=== PATIENT | male | born 1980 | race Hispanic/Latino ===

== ENCOUNTER → 2021-03-12 | Outpatient (CLI) | payer SELFPAY | LOC: M LABSMTC 14:15 | PROVIDERS: ATTEND Pediatrics | DX: Z20.822 Contact with and (suspected) exposure to COVID-19 (principal) ==

== ENCOUNTER 2021-03-18 17:32 | Inpatient (IN) | payer OTHER ==
[~2021-03-18] VITALS: Ht 182.9 cm; Wt 116.0 kg
[2021-03-18] MEDS ORDERED: NS 1,000 ML IV ONE (18:05)
[2021-03-18] MEDS ORDERED: ACETAMINOPHEN TAB 650MG DOSE (2X325MG) PO ONE ×2 (18:05→18:15)
[2021-03-18 18:31] LABS: HEMATOCRIT 41.2 % (42.0-52.0); HEMOGLOBIN 13.9 g/dl (13.5-17.5); MEAN CORPUSCULAR HEMOGLOBIN 29.3 pg (27.0-33.0); MEAN CORPUSCULAR HGB CONC 33.7 g/dl (32.0-36.5); MEAN CORPUSCULAR VOLUME 86.7 fl (80.0-96.0); PLATELET COUNT, AUTOMATED 160 10^3/uL (150-450); RED BLOOD COUNT 4.75 10^6/uL (4.30-6.10)
--- NOTE | 2021-03-18 18:41 | REP ---
INDICATION: CHEST PAIN. COMPARISON: None. TECHNIQUE: Single portable AP view of the chest was performed. FINDINGS: There is infiltrate in the left lung base. The right lung appears clear. The cardiac silhouette is mildly prominent. The mediastinal silhouette is unremarkable. IMPRESSION: Infiltrate left lung base. <Electronically signed by Morro Ansari > 03/18/21 [id number]
[2021-03-18 18:44] LABS: INR 0.99; PARTIAL THROMBOPLASTIN TIME 35.5 SECONDS (24.2-38.5); PROTHROMBIN TIME 13.2 SECONDS (12.5-14.3)
[2021-03-18 18:47] VITALS: O2SAT 94
[2021-03-18 18:53] LABS: D-DIMER QUANT 1730.3 ng/ml (<500)
[2021-03-18] MEDS ORDERED: GABA-282 (18:54)
[2021-03-18] MEDS ORDERED: CRES10TA (18:54)
[2021-03-18] MEDS ORDERED: DULO1CAP5 (18:54)
[2021-03-18] MEDS ORDERED: AMOX875T2 (18:54)
[2021-03-18] MEDS ORDERED: AZITHROMYCIN INJ 500 MG, VIAL MATE ADAPTER 1 EACH in NS 250 ML IV ONE (18:55)
[2021-03-18] MEDS ORDERED: cefTRIAXone SOD 1 GM in D5W MINI-BAG PLUS 50 ML IV ONE (18:55)
[2021-03-18 19:00] LABS: LYMPHOCYTES 13 % (16-44); METAMYELOCYTES 1 % (0-0); MONOCYTES 3 % (0-5); NEUTROPHILS 70 % (28-66); PLATELET ESTIMATE NORMAL (NORMAL)
[2021-03-18 19:29] LABS: ALBUMIN 3.6 GM/DL (3.2-5.2); ALT/SGPT 58 U/L (12-78); BILIRUBIN,DIRECT < 0.1 MG/DL (0.0-0.2); BILIRUBIN,TOTAL 0.5 MG/DL (0.2-1.0); BLOOD UREA NITROGEN 11 MG/DL (7-18); CALCIUM LEVEL 8.7 MG/DL (8.5-10.1); CARBON DIOXIDE LEVEL 25 MEQ/L (21-32); CHLORIDE LEVEL 99 MEQ/L (98-107); CK-MB VALUE MASS 1.1 NG/ML (<3.6); CPK CREATINE PHOSPHOKINASE 464 U/L (39-308); FERRITIN 1719 NG/ML (26-388); FREE T4 1.35 NG/DL (0.76-1.46); GLOMERULAR FILTRATION RATE > 60.0 (>60); GLUCOSE, FASTING 114 MG/DL (70-100); LDH LACTATE DEHYDROGENASE 403 U/L (87-241); MAGNESIUM LEVEL 2.2 MG/DL (1.8-2.4); MB/CK RELATIVE INDEX 0.24 (< OR =4); POTASSIUM SERUM 3.8 MEQ/L (3.5-5.1); SODIUM LEVEL 133 MEQ/L (136-145); TOTAL PROTEIN 7.9 GM/DL (6.4-8.2); TROPONIN I < 0.02 NG/ML (< 0.10)
[2021-03-18] MEDS ORDERED: ISOVUE-370 76% 100ML VIAL As Ordered ONE (20:05)
[2021-03-18] MEDS ORDERED: IBUPROFEN 600MG TAB PO ONE (20:55)
--- NOTE | 2021-03-18 21:23 | REPVR ---
PROCEDURE INFORMATION: Exam: CTA Chest With Contrast Exam date and time: 03/18/2021 8:54 PM Age: 41 years old Clinical indication: Shortness of breath; Additional info: SOB covid positive TECHNIQUE: Imaging protocol: Computed tomographic angiography of the chest with contrast. 3D rendering (Not supervised by radiologist): MIP and/or 3D reconstructed images were created by the technologist. Radiation optimization: All CT scans at this facility use at least one of these dose optimization techniques: automated exposure control; mA and/or kV adjustment per patient size (includes targeted exams where dose is matched to clinical indication); or iterative reconstruction. Contrast material: ISOVUE 370; Contrast volume: 75 ml; Contrast route: INTRAVENOUS (IV); COMPARISON: DC PORTABLE CHEST X-RAY 03/18/2021 6:21 PM FINDINGS: Pulmonary arteries: There are no pulmonary emboli. Aorta: There is no aortic dissection or aneurysm. Lungs: Bilateral pulmonary parenchymal infiltrates demonstrated in both lower lobes with a large focus of consolidation including air bronchograms in the left lower lobe. Findings consistent with known Covid positive diagnosis. Pleural spaces: Unremarkable. No pneumothorax. No pleural effusion. Heart: Unremarkable. No cardiomegaly. No pericardial effusion. Lymph nodes: Mediastinal lymphadenopathy likely postinflammatory. Bones/joints: Unremarkable. No acute fracture. Soft tissues: Unremarkable. IMPRESSION: 1. There are no pulmonary emboli. 2. Bilateral pulmonary parenchymal infiltrates demonstrated in both lower lobes with a large focus of consolidation including air bronchograms in the left lower lobe. Findings consistent with known Covid positive diagnosis. 3. There is no aortic dissection or aneurysm. Electronically signed by: Naseem Berry On 03/18/2021 21:23:11 PM
[2021-03-18] MEDS ORDERED: dexameTHASONE 20MG/5ML VIAL (J1100 PER 1MG) IV ONE (21:30)
[2021-03-18] MEDS ORDERED: GABA-282 PO (22:12)
[2021-03-18] MEDS ORDERED: DULO30CA9 PO (22:12)
[2021-03-18] MEDS ORDERED: AUGM875T28 PO (22:12)
[2021-03-18] MEDS ORDERED: ROSU10TA6 PO (22:12)
[2021-03-18] MEDS ORDERED: LIDO1PAD TOP (22:22)
[2021-03-18] MEDS ORDERED: IBUP-1764 PO (22:22)
[2021-03-18] MEDS ORDERED: D31000TA2 PO (22:22)
[2021-03-18] MEDS ORDERED: ZANA4TAB PO (22:22)
[2021-03-18] MEDS ORDERED: TRIA1CR80 TOP (22:22)
[2021-03-18] MEDS ORDERED: CLOB0.057 TOP (22:22)
[2021-03-18] MEDS ORDERED: ACET-897 PO (22:22)
[2021-03-18] MEDS ORDERED: VITA500C24 PO (22:22)
--- NOTE | 2021-03-18 23:04 | HPEPDOC ---
[facility] Medical History & Physical Date of Admission Mar 18, 2021 Date of Service: Mar 18, 2021 History and Physical CHIEF COMPLAINT: fever, shortness of breath HISTORY OF PRESENT ILLNESS: 41-year-old male with history of hyperlipidemia, WILLIAM and depression. Presented to the ER with symptoms of shortness of breath and subjective fevers lasting approximately one week. He was diagnosed with Covid on March 16 at an urgent care. Vital to the ER patient was found to be febrile to temperature 103.4 with heart rate to 120s with sinus tachycardia on EKG. Patient does not open her chest pain, palpitations, nausea, vomiting, diarrhea, headache, or diarrhea. Does exercise a left lower lobe infiltrate that is consistent with CT imaging. CT chest with angiogram did not show a pulmonary embolism. Patient will be admitted to hospitalist service for management of sepsis secondary to Covid and superimposed bacterial pneumonia. PAST MEDICAL HISTORY: depression HLD WILLIAM on home CPAP PAST SURGICAL HISTORY: R shoulder surgery SOCIAL HISTORY: denies etoh use denies smoking denies illicits active FAMILY HISTORY: Denies relevant family history ALLERGIES: Please see below. REVIEW OF SYSTEMS: 10 point review of systems was completed, relevant findings are noted in HPI. HOME MEDICATIONS: Please see below. PHYSICAL EXAMINATION: VITAL SIGNS: please see below General: He is diaphoretic, HEENT: PERRLA, EOMI, sclerae clear Neck: supple, normal ROM, no JVD Respiratory: Rales in the left lung base. Fair air entry in the lung bases. Wheezing, no crackles CVS: RRR, normal S1, S2, no murmurs Abdo: soft, no masses, no hepatosplenomegaly, BS+, no rebound tenderness Extremities: no edema, pulses 2+ MSK: no joint deformities, normal ROM Neuro: no focal neuro deficits, moving all 4 extremities, CN2-12 intact. Strength 5/5 in all 4 extremities. No nystagmus. Psych: calm, cooperative, AAO x 3 LABORATORY DATA: See below. IMAGING: CXR (03/18/21): Infiltrate left lung base. CTA chest (03/18/21): 1. There are no pulmonary emboli. 2. Bilateral pulmonary parenchymal infiltrates demonstrated in both lower lobes with a large focus of consolidation including air bronchograms in the left lower lobe. Findings consistent with known Covid positive diagnosis. 3. There is no aortic dissection or aneurysm. MICROBIOLOGY: Please see below. ASSESSMENT: 41-year-old male with history of depression and hyperlipidemia presented with shortness of breath and fever secondary to Covid 19. Patient was diagnosed on 03/16/21. In the ER, chest, imaging shows a left lower lobe infiltrate consistent with Covid with superimposed bacterial pneumonia. Patient has elevated up with calcitonin sinus tachycardia and fever to 103.4. Patient will be admitted for management of sepsis. PLAN: #Sepsis 2/2 covid-19 with superimposed bacterial pneumonia - patient first sick on 03/13, diagnosed with covid-19 on 03/06/21 at urgent care - Tmax 103.4. Sinus tach 120s, tachypneic to 20s. Meets sepsis criteria. No leukocytosis - procal mildly elevated at 0.63. CRP 23.5. D dimer 1730. Ferritin 1720. LDH 464. CK 464. - will check inflammatory panel in AM. - patient is not hypoxic below 92%. Will not start remdesivir. - will start dexamethasone 6 mg IV - start levaquin for pna. Follow up blood cx, sputum cx, legionella, strep ags. - O2 via NC to maintain saturation above 92% - incentive spirometry - admit to COVID floor #hx of WILLIAM - uses home CPAP - O2 #MSK pain - c/w tizanidine, gabapentin #Depression - c/w duloxetine DVT ppx: lovenox daily 40 mg SC Dispo: pending clinical improvement. Vital Signs Vital Signs Date Time Temp Pulse Resp B/P (MAP) Pulse Ox O2 Delivery O2 Flow Rate FiO2 03/18/21 22:30 109 94 Room Air 03/18/21 22:15 125/87 (100) 03/18/21 21:36 18 03/18/21 20:45 102.9 Laboratory Data Labs 24H Laboratory Tests 2 03/18/21 18:13: Prothrombin Time 13.2, Prothromb Time International Ratio 0.99, Activated Partial Thromboplast Time 35.5, D-Dimer, Quantitative 1730.30H, Lactic Acid Level 1.7 03/18/21 18:17: Neutrophils (%) (Auto) , Nucleated Red Blood Cells % (auto) 0.0, Neutrophils 70H, Band Neutrophils 13H, Lymphocytes (Manual) 13L, Monocytes (Manual) 3, Metamyelocytes 1H, Platelet Estimate NORMAL, Anion Gap 9, Glomerular Filtration Rate > 60.0, Calcium Level 8.7, Magnesium Level 2.2, Ferritin 1719H, Total Bilirubin 0.5, Direct Bilirubin < 0.1, Aspartate Amino Transf (AST/SGOT) 61H, A lanine Aminotransferase (ALT/SGPT) 58, Alkaline Phosphatase 71, Lactate Dehydrogenase 403H, Total Creatine Kinase 464H, Creatine Kinase MB 1.1, Creatine Kinase MB Relative Index 0.24, Troponin I < 0.02, C-Reactive Protein, Quantitative 23.50H, Total Protein 7.9, Albumin 3.6, Albumin/Globulin Ratio 0.8, Thyroid Stimulating Hormone (TSH) 0.620, Free Thyroxine 1.35 03/18/21 18:24: Procalcitonin 0.63 CBC/BMP Laboratory Tests 03/18/21 18:17 Microbiology Microbiology 03/18/21 Blood Culture, Received Pending 03/18/21 Blood Culture, Received Pending Home Medications Scheduled Amoxicillin/Potassium Clav (Augmentin 875-125 Tablet) 1 Each Tablet, 875 MG PO BID STARTED 03/16/21 Ascorbic Acid (Vitamin C) 500 Mg Capsule, 500 MG PO DAILY Cholecalciferol (Vitamin D3) (Vitamin D3) 1,000 Unit Tablet, 1,000 UNITS PO DAILY Clobetasol Propionate (Clobetasol Propionate) 0.05% 50ML Solution, 1 DOSE TOP DAILY APPLIES TO SCALP AFTER SHOWER Duloxetine Hcl (Duloxetine HCl) 30 Mg Capsule.dr, 30 MG PO BID Gabapentin (Gabapentin) 300 Mg Capsule, 300 MG PO TID Prednisone (Prednisone) 10 Mg Tablet, 10 MG PO TAPER Take 4 tabs daily x 2 days, then 3 tabs daily x 2 days, then 2 tabs daily x 2 days, then 1 tab daily x 2 days and stop Rosuvastatin Calcium (Rosuvastatin Calcium) 10 Mg Tablet, 10 MG PO DAILY Triamcinolone Acet (Triamcinolone Acetonide 0.1% Crm) 80 Gm Cream..g., 1 DOSE TOP DAILY APPLIES TO LEFT HAND AFTER A SHOWER Scheduled PRN Acetaminophen (Tylenol Extra Strength) 500 Mg Tablet, 1,000 MG PO Q6H PRN for FEVER Ibuprofen (Ibuprofen) 200 Mg Tablet, 800 MG PO TID PRN for FEVER Lidocaine (Lidocaine) 5% Adh..patch, 1 PATCH TOP DAILY PRN for PAIN APPLIES TO LOWER BACK Tizanidine HCl (Zanaflex) 4 Mg Tablet, 4 MG PO TID PRN for MUSCLE SPASMS Allergies Coded Allergies: No Known Allergies (Unverified , 05/25/15) A-FIB/CHADSVASC A-FIB History Current/History of A-Fib/PAF?: No Current PO Anticoag Therapy: No CRISTOPHER BROWNLEE MD Mar 18, 2021 23:04
[2021-03-18] MEDS ORDERED: MAALOX 30 ML SUSP *UDC PO PRN (23:05)
[2021-03-18] MEDS ORDERED: MOM 30ML SUSPENSION UDC PO PRN (23:05)
[2021-03-18] MEDS ORDERED: ACETAMINOPHEN TAB 650MG DOSE (2X325MG) PO PRN (23:05)
[2021-03-19] MEDS ORDERED: tiZANidine 4 MG TAB PO PRN
[2021-03-19 02:00] VITALS: BP 113/69
[2021-03-19] MEDS: GABAPENTIN 300 MG CAP PO SCH ×2 (02:21→07:48)
[2021-03-19] MEDS: DULoxetine 30 MG CAP (CYMBALTA) PO SCH ×2 (02:21→07:48)
[2021-03-19] MEDS ORDERED: LevoFLOXacin 750 MG TABLET PO SCH (06:00)
[2021-03-19] MEDS ORDERED: dexameTHASONE 4 MG/ML 1ML VIAL (J1100 PER 1MG) IV SCH (09:00)
[2021-03-19] MEDS ORDERED: DOCUSATE SODIUM 100MG CAPSULE PO SCH (09:00)
[2021-03-19] MEDS ORDERED: ROSUVASTATIN 10 MG TAB (CRESTOR) PO SCH (09:00)
[2021-03-19] MEDS ORDERED: ASCORBIC ACID 500 MG TAB PO SCH (09:00)
[2021-03-19 09:50] LABS: HEMATOCRIT 38.3 % (42.0-52.0); HEMOGLOBIN 12.9 g/dl (13.5-17.5); MEAN CORPUSCULAR HGB CONC 33.7 g/dl (32.0-36.5); MEAN CORPUSCULAR VOLUME 86.1 fl (80.0-96.0); PLATELET COUNT, AUTOMATED 159 10^3/uL (150-450); RED BLOOD COUNT 4.45 10^6/uL (4.30-6.10); WHITE BLOOD COUNT 4.8 10^3/uL (4.0-10.0)
[2021-03-19 10:05] LABS: INR 1.08; PROTHROMBIN TIME 14.3 SECONDS (12.5-14.3)
[2021-03-19 10:06] LABS: PARTIAL THROMBOPLASTIN TIME 41.9 SECONDS (24.2-38.5)
[2021-03-19 10:09] LABS: D-DIMER QUANT 1393.55 ng/ml (<500)
[2021-03-19 10:19] LABS: ALBUMIN 3.1 GM/DL (3.2-5.2); ALT/SGPT 53 U/L (12-78); BILIRUBIN,TOTAL 0.3 MG/DL (0.2-1.0); BLOOD UREA NITROGEN 11 MG/DL (7-18); CALCIUM LEVEL 8.4 MG/DL (8.5-10.1); CARBON DIOXIDE LEVEL 23 MEQ/L (21-32); CHLORIDE LEVEL 106 MEQ/L (98-107); CPK CREATINE PHOSPHOKINASE 323 U/L (39-308); CREATININE FOR GFR 0.83 MG/DL (0.70-1.30); FERRITIN 1934 NG/ML (26-388); GLOMERULAR FILTRATION RATE > 60.0 (>60); GLUCOSE, FASTING 242 MG/DL (70-100); LDH LACTATE DEHYDROGENASE 347 U/L (87-241); MAGNESIUM LEVEL 2.3 MG/DL (1.8-2.4); POTASSIUM SERUM 4.1 MEQ/L (3.5-5.1); SODIUM LEVEL 137 MEQ/L (136-145); TROPONIN I < 0.02 NG/ML (< 0.10)
[2021-03-19 10:26] LABS: LYMPHOCYTES 6 % (16-44); MONOCYTES 2 % (0-5); NEUTROPHILS 91 % (28-66); PLATELET ESTIMATE NORMAL (NORMAL)
[2021-03-19] MEDS ORDERED: PRED10TA2 PO (12:00)
--- NOTE | 2021-03-20 06:16 | ECGEPIP ---
[facility] - ED Test Date: 2021-03-18 Pat Name: TRINITY RED Department: Room: [place] [address] Gender: Male Glove Tagger: LOIS : 1980 Requested By: CAROL Hawk Order Number: [id number] Reading MD: Romana Cruz Measurements Intervals [place] Rate: 100 P: 36 KS: 142 QRS: -12 QRSD: 112 T: 13 QT: 350 QTc: 451 Interpretive Statements Normal sinus rhythm Moderate voltage criteria for LVH, may be normal variant ( R in aVL , Levels prod product ) INTRAVENTRICULAR CONDUCTION DELAY Nonspecific ST T wave changes Delayed R wave progression No prior ECG for comparison Electronically Signed on 03-20-2021 6:15:39 EDT by Romana Cruz
[2021-03-22 13:11] LABS: BODY FLUID CULTURE Not indicated. (.); LEGIONELLA ANTIGEN URINE Negative (Negative); ORGANISM ID Not indicated. (.); SPECIMEN SOURCE Urine (.); URINE STREP PNEUMONIAE ANTIGEN Negative (Negative)
[2021-03-29] MEDS ORDERED: HEPARIN SOD (PORCINE) 5000UNITS/ML 1ML VIAL/SYRINGE SC SCH (06:00)
--- NOTE | 2021-03-30 11:42 | DS.PDOC ---
Discharge Summary General Date of Admission Mar 18, 2021 at 23:02 Date of Discharge 03/19/21 Discharge Summary PROCEDURES PERFORMED DURING STAY: [None]. ADMITTING DIAGNOSES: #COVID-19 infection DISCHARGE DIAGNOSES: #depression #HLD #WILLIAM/CPAP COMPLICATIONS/CHIEF COMPLAINT: Covid+,Pneumonia. HISTORY OF PRESENT ILLNESS: 41-year-old male with history of hyperlipidemia, WILLIAM and depression. Presented to the ER with symptoms of shortness of breath and subjective fevers lasting approximately one week. He was diagnosed with Covid on March 16 at an urgent care. Vital to the ER patient was found to be febrile to temperature 103.4 with heart rate to 120s with sinus tachycardia on EKG. Patient does not open her chest pain, palpitations, nausea, vomiting, diarrhea, headache, or diarrhea. Does exercise a left lower lobe infiltrate that is consistent with CT imaging. CT chest with angiogram did not show a pulmonary embolism. Patient will be admitted to hospitalist service for management of sepsis secondary to Covid and superimposed bacterial pneumonia. HOSPITAL COURSE: Patient was admitted for further evaluation and treatment. Patient was asymptomatic with regards to his Covid infection. His sepsis resolved. He was saturating well on room air. He was discharged home in stable condition with outpatient follow-up. DISCHARGE MEDICATIONS: Please see below. ALLERGIES: Please see below. PHYSICAL EXAMINATION ON DISCHARGE: VITAL SIGNS: please see below General: He is diaphoretic, HEENT: PERRLA, EOMI, sclerae clear Neck: supple, normal ROM, no JVD Respiratory: Rales in the left lung base. Fair air entry in the lung bases. Wheezing, no crackles CVS: RRR, normal S1, S2, no murmurs Abdo: soft, no masses, no hepatosplenomegaly, BS+, no rebound tenderness Extremities: no edema, pulses 2+ MSK: no joint deformities, normal ROM Neuro: no focal neuro deficits, moving all 4 extremities, CN2-12 intact. Strength 5/5 in all 4 extremities. No nystagmus. Psych: calm, cooperative, AAO x 3 LABORATORY DATA: Please see below. ACTIVITY: [As tolerated]. DISPOSITION: 01 Home, Self-Care. DISCHARGE INSTRUCTIONS: 1. Follow up with PCP in 3-5 days. 2. Quarantine as directed. TIME SPENT ON DISCHARGE: 35 minutes. Discharge Medications Scheduled Amoxicillin/Potassium Clav (Augmentin 875-125 Tablet) 1 Each Tablet, 875 MG PO BID, (Reported) STARTED 03/16/21 Ascorbic Acid (Vitamin C) 500 Mg Capsule, 500 MG PO DAILY, (Reported) Cholecalciferol (Vitamin D3) (Vitamin D3) 1,000 Unit Tablet, 1,000 UNITS PO DAILY, (Reported) Clobetasol Propionate (Clobetasol Propionate) 0.05% 50ML Solution, 1 DOSE TOP DAILY, (Reported) APPLIES TO SCALP AFTER SHOWER Duloxetine Hcl (Duloxetine HCl) 30 Mg Capsule.dr, 30 MG PO BID, (Reported) Gabapentin (Gabapentin) 300 Mg Capsule, 300 MG PO TID, (Reported) Prednisone (Prednisone) 10 Mg Tablet, 10 MG PO TAPER Take 4 tabs daily x 2 days, then 3 tabs daily x 2 days, then 2 tabs daily x 2 days, then 1 tab daily x 2 days and stop Rosuvastatin Calcium (Rosuvastatin Calcium) 10 Mg Tablet, 10 MG PO DAILY, (Reported) Triamcinolone Acet (Triamcinolone Acetonide 0.1% Crm) 80 Gm Cream..g., 1 DOSE TOP DAILY, (Reported) APPLIES TO LEFT HAND AFTER A SHOWER Scheduled PRN Acetaminophen (Tylenol Extra Strength) 500 Mg Tablet, 1,000 MG PO Q6H PRN for FEVER, (Reported) Ibuprofen (Ibuprofen) 200 Mg Tablet, 800 MG PO TID PRN for FEVER, (Reported) Lidocaine (Lidocaine) 5% Adh..patch, 1 PATCH TOP DAILY PRN for PAIN, (Reported) APPLIES TO LOWER BACK Tizanidine HCl (Zanaflex) 4 Mg Tablet, 4 MG PO TID PRN for MUSCLE SPASMS, (Reported) Allergies Coded Allergies: No Known Allergies (Unverified , 05/25/15) JESUS ALBERTO FERNANDEZ MD March 30, 2021 11:42
== END 2021-03-19 14:00 | disposition home or self-care (01) | DRG 871 ==
LOC: M ED 17:32 → M ED INP 23:02 → ENRESERVTM 23:42 → ENRESERVDT 23:42 → M 4MAIN 03-19 01:30
PROVIDERS: ADMIT Family Medicine; ATTEND Internal Medicine
DX: A41.9 Sepsis, unspecified organism (principal); J12.82 Pneumonia due to coronavirus disease 2019; U07.1 COVID-19; F32.9 Major depressive disorder, single episode, unspecified; G47.33 Obstructive sleep apnea (adult) (pediatric); E78.5 Hyperlipidemia, unspecified; Z79.899 Other long term (current) drug therapy

== ENCOUNTER → 2021-09-14 | Outpatient (REF) ==
[~2021-09-14] MED LIST: ACET-897 PO; AMOX875T2; AUGM875T28 PO; CLOB0.057 TOP; CRES10TA; D31000TA2 PO; DULO1CAP5; DULO30CA9 PO; GABA-282; GABA-282 PO; IBUP-1764 PO; LIDO1PAD TOP; PRED10TA2 PO; ROSU10TA6 PO; TRIA1CR80 TOP; VITA500C24 PO; ZANA4TAB PO
--- NOTE | 2021-09-14 13:26 | REP ---
INDICATION: SOB. COMPARISON: 03/18/2021 latest prior portable exam TECHNIQUE: PA and lateral views FINDINGS: The superior mediastinal structures are midline. The cardiac silhouette is unremarkable in size, shape, and position. The diaphragmatic surfaces of the lungs are regular, and the costophrenic angles are clear. The pulmonary bruner are clear. The imaged osseous structures are intact. IMPRESSION: There is no acute cardiopulmonary disease. <Electronically signed by Dimas Scales > 09/14/21 [id number]
--- NOTE | 2021-09-14 13:27 | REP ---
INDICATION: SOB. COMPARISON: None. TECHNIQUE: Frontal and bilateral lateral views of the nasal bones were obtained. FINDINGS: No evidence of nasal bone fracture. There are no soft tissue abnormalities. The visualized paranasal sinuses appear clear. IMPRESSION: Normal nasal bones. <Electronically signed by Trent Omer > 09/14/21 [id number]
--- NOTE | 2021-09-14 13:53 | REP ---
INDICATION: SOB. COMPARISON: None TECHNIQUE: Three views FINDINGS: There is mild to moderate posterior disc space narrowing at every level. Vertebral body height and alignment is within normal limits. There is marginal osteophytosis at the L2-3 and L3-4 levels. Degenerative facet joint changes are seen bilaterally L3-4 through L5-S1. IMPRESSION: Mild chronic changes as described above. <Electronically signed by Dimas Scales > 09/14/21 [id number]
== END ==
LOC: M PLAIMG 11:06
PROVIDERS: ATTEND Internal Medicine
DX: R06.02 Shortness of breath (principal)

== ENCOUNTER → 2022-08-03 | Outpatient (REF) ==
[~2022-08-03] MED LIST changes: -D31000TA2 PO; +VITA100093 PO
== END ==
LOC: M PLAIMG 10:25
PROVIDERS: ATTEND Internal Medicine
DX: M25.562 Pain in left knee (principal); M25.551 Pain in right hip

== ENCOUNTER 2023-11-16 06:41 | Day surgery (SDC) | payer OTHER ==
[~2023-11-16] VITALS: Ht 182.9 cm; Wt 124.6 kg
[~2023-11-16 06:41] MED LIST changes: +HYDR-3490 PO; +LISI10TA22 PO; +METF-839 PO; +NS 1,000 ML IV ONE
[2023-11-16] MEDS ORDERED: GLYCOPYRROLATE INJ 0.2 MG/ML 2 ML VIAL As Ordered ONE (07:49)
[2023-11-16] MEDS ORDERED: LIDOCAINE 2% 100MG/5ML SDV (FOR ANES.) As Ordered ONE (07:49)
[2023-11-16] MEDS ORDERED: propofoL 200 MG/20 ML VIAL As Ordered ONE (07:49)
[2023-11-16 07:50] VITALS: TEMP 98.7
[2023-11-16 08:05] VITALS: BP 136/68; O2SAT 98
== END 2023-11-16 08:15 | disposition home or self-care (01) ==
LOC: M OPP 06:41
PROVIDERS: ATTEND Internal Medicine Gastroenterology
DX: Z12.11 Encounter for screening for malignant neoplasm of colon (principal); K64.8 Other hemorrhoids; Z87.891 Personal history of nicotine dependence; G47.30 Sleep apnea, unspecified; Z99.89 Dependence on other enabling machines and devices; E11.9 Type 2 diabetes mellitus without complications; Z79.02 Long term (current) use of antithrombotics/antiplatelets; Z79.2 Long term (current) use of antibiotics; Z79.84 Long term (current) use of oral hypoglycemic drugs; Z79.899 Other long term (current) drug therapy

== ENCOUNTER → 2024-04-13 | Outpatient (CLI) | payer OTHER ==
[~2024-04-13] MED LIST changes: -NS 1,000 ML IV ONE; -ROSU10TA6 PO; +ROSU10TA61 PO
== END ==
LOC: M RAD 13:12
PROVIDERS: ATTEND Podiatrist Foot & Ankle Surgery
DX: S92.015A Nondisplaced fracture of body of left calcaneus, initial encounter for closed fracture (principal); Y92.9 Unspecified place or not applicable; Y93.9 Activity, unspecified

== ENCOUNTER → 2024-10-07 | Outpatient (CLI) | payer OTHER ==
[~2024-10-07] MED LIST changes: +GABA-1172; +GABA-1172 PO; -GABA-282; -GABA-282 PO
== END ==
LOC: M SOG 07:50
PROVIDERS: ATTEND Physician Assistant
DX: M25.572 Pain in left ankle and joints of left foot (principal); M19.072 Primary osteoarthritis, left ankle and foot; Z87.81 Personal history of (healed) traumatic fracture

== ENCOUNTER → 2025-01-08 | Outpatient (CLI) | payer OTHER | LOC: M SLEEP 20:00 | PROVIDERS: ATTEND Nurse Practitioner Family | DX: G47.33 Obstructive sleep apnea (adult) (pediatric) (principal) ==